=== PATIENT | female | born 1945 | race Caucasian/White ===

== ENCOUNTER → 2024-01-28 10:14 | Outpatient (REF) | payer MEDICARE, BC, SELFPAY | LOC: RAD 10:14 | PROVIDERS: ATTENDING PHYSICIAN Internal Medicine Critical Care Medicine; FAMILY PHYSICIAN Internal Medicine | DX: Z87.891 Personal history of nicotine dependence (principal) | CPT/HCPCS: 71271 ==

== ENCOUNTER → 2024-03-24 12:36 | Outpatient (REF) | payer MEDICARE, BC, SELFPAY | LOC: WDC 12:36 | PROVIDERS: ATTENDING PHYSICIAN Obstetrics & Gynecology Gynecology; FAMILY PHYSICIAN Internal Medicine | DX: Z85.3 Personal history of malignant neoplasm of breast (principal); Z12.31 Encounter for screening mammogram for malignant neoplasm of breast | CPT/HCPCS: 77063; 77067 ==

== ENCOUNTER → 2024-05-19 09:26 | Outpatient (REF) | payer MEDICARE, BC, SELFPAY | LOC: RAD 09:26 | PROVIDERS: ATTENDING PHYSICIAN Internal Medicine Critical Care Medicine; FAMILY PHYSICIAN Internal Medicine | DX: R91.1 Solitary pulmonary nodule (principal) | CPT/HCPCS: 71250 ==

== ENCOUNTER → 2024-11-05 11:31 | Outpatient (REF) | payer MEDICARE, BC, SELFPAY | LOC: RAD 11:31 | PROVIDERS: ATTENDING PHYSICIAN Surgery Vascular Surgery; FAMILY PHYSICIAN Internal Medicine | DX: I77.9 Disorder of arteries and arterioles, unspecified (principal); I65.22 Occlusion and stenosis of left carotid artery | CPT/HCPCS: 93880 ==

== ENCOUNTER → 2024-12-29 13:31 | Outpatient (REF) | payer MEDICARE, BC, SELFPAY | LOC: RCS 13:31 | PROVIDERS: ATTENDING PHYSICIAN Internal Medicine Cardiovascular Disease; FAMILY PHYSICIAN Internal Medicine | DX: I50.32 Chronic diastolic (congestive) heart failure (principal) | CPT/HCPCS: 93306 ==

== ENCOUNTER → 2025-01-28 08:03 | Outpatient (REF) | payer MEDICARE, BC, SELFPAY | LOC: HWRCS 08:03 | PROVIDERS: ATTENDING PHYSICIAN Internal Medicine Cardiovascular Disease; FAMILY PHYSICIAN Internal Medicine | DX: R06.09 Other forms of dyspnea (principal) | CPT/HCPCS: 78452; 93017; A9500; J2785 ==

== ENCOUNTER → 2025-04-17 13:59 | Outpatient (REF) | payer MEDICARE, BC, SELFPAY | LOC: RAD 13:59 | PROVIDERS: ATTENDING PHYSICIAN Student in an Organized Health Care Education/Training Program; FAMILY PHYSICIAN Internal Medicine | DX: M81.0 Age-related osteoporosis without current pathological fracture (principal); R29.890 Loss of height; Z51.81 Encounter for therapeutic drug level monitoring | CPT/HCPCS: 77080 ==

== ENCOUNTER → 2025-05-08 10:13 | Outpatient (REF) | payer MEDICARE, BC, SELFPAY | LOC: RAD 10:13 | PROVIDERS: ATTENDING PHYSICIAN Surgery Vascular Surgery; FAMILY PHYSICIAN Internal Medicine | DX: I65.23 Occlusion and stenosis of bilateral carotid arteries (principal) | CPT/HCPCS: 93880 ==

== ENCOUNTER → 2025-05-11 17:03 | Outpatient (REF) | payer MEDICARE, BC, SELFPAY | LOC: RAD 17:03 | PROVIDERS: ATTENDING PHYSICIAN Internal Medicine Critical Care Medicine; FAMILY PHYSICIAN Internal Medicine; OTHER PHYSICIAN Surgery Vascular Surgery | DX: R91.1 Solitary pulmonary nodule (principal); I65.23 Occlusion and stenosis of bilateral carotid arteries | CPT/HCPCS: 70496; 70498; 71250; Q9967 ==

== ENCOUNTER 2025-05-20 06:05 | Inpatient (IN) | payer MEDICARE, BC, SELFPAY ==
[2025-05-14 09:52] VITALS: BMI 21.9
[2025-05-14 10:21] LABS: Hematocrit 40.7 % (37.0-47.0); Hemoglobin 13.8 g/dL (12.0-16.0); Mean Corp Hgb Conc. 33.9 g/dL (33.0-37.0); Mean Corpuscular Volume 89.3 fL (81.0-99.0); Nucleated Red Blood Cells % 0 %; Platelet Count 186 10^3/uL (130-400); Red Cell Dist. Width 13.6 % (11.5-14.5)
[2025-05-14 10:26] LABS: APTT 34.8 Sec (23.4-35.0); INR 1.33; PT 16.8 Sec (11.4-14.6)
[2025-05-14 11:11] LABS: Blood Urea Nitrogen 22 mg/dl (7-17); Calcium 10.5 mg/dl (8.4-10.2); Carbon Dioxide 31 mmol/L (22-30); Chloride 107 mmol/L (98-107); Estimated Creatinine Clearance 48 ml/min; Glucose 104 mg/dl (70-99); Potassium 4.4 mmol/L (3.5-5.1); Sodium 143 mmol/L (135-145); eGFR > 60.00
[2025-05-20] VITALS (12 sets, daily range): BP systolic 100–139; BP diastolic 48–77; BMI 21.9
[2025-05-20] MEDS: NSS 500 IV (06:42)
[2025-05-20] MEDS: PERIDEX 0.12% ORAL RINSE 15 ML PO (06:42)
[2025-05-20] MEDS: BACTROBAN NASAL 1 GRAM NASAL (06:42)
--- NOTE | 2025-05-20 07:20 | W.SUR.PREOP ---
Pre-Operative Surgical Note
-
I have examined this patient prior to the performance of the scheduled procedure.
The patient's condition is unchanged from the time of the current History and
Physical and the patient is able to undergo the scheduled procedure.
[2025-05-20 08:10] LABS: ACT-LR - POC 276 Seconds (116-155)
[2025-05-20 08:48] LABS: ACT-LR - POC 242 Seconds (116-155)
--- NOTE | 2025-05-20 09:47 | W.SUR.POST ---
Surgical Immediate Post Op
Note
Pre Op Diagnosis: Right Carotid Stenosis
Post Op Diagnosis: Right Carotid Stenosis
Procedure Performed: Right carotid endarterectomy
Primary Surgeon: Grady Luo MD
Secondary Surgeons: Jacob Wren MD
Anesthesia: see anesthesia report
Estimated Blood Loss: 20 cc
Fluids: see anesthesia report
Drains/Shunts: None
Specimens/Cultures: Right carotid plaque
Doppler/Duplex/Angio (Y/N): N
Complications: No
Operative Findings: Right carotid stenosis
[2025-05-20 09:48] LABS: Glucose - Point of Care 163 mg/dl (70-99)
--- NOTE | 2025-05-20 09:49 | OR.RPT ---
Operative Report
Operative Report
Date of Operation: May 20, 2025
Pre Op Diagnosis: High-grade right carotid artery stenosis, symptomatic
Post Op Diagnosis: High-grade right carotid artery stenosis, symptomatic
Procedure: RIGHT carotid endarterectomy with patch angioplasty using bovine pericardium
Surgeon: Grady Luo III, MD
[employer] Supervisor: Jacob Wren MD PGY-6
Anesthesia: General
Complications: None
History and Indications for Procedure: 79-year-old female with symptomatic right carotid artery stenosis
Procedure in Detail: Lilia Carson was correctly identified and placed supine on the operating table. After adequate induction of anesthesia the right neck was positioned, prepped and draped in the usual sterile fashion. Preoperative antibiotics were
administered. A timeout procedure was performed with the nursing and anesthesia staff confirming the patients identity as well as the nature and laterality of the procedure.
The carotid bifurcation was marked with ultrasound at the beginning of the case. The incision was planned accordingly. An incision was made along the anterior border of the right sternocleidomastoid muscle. Electrocautery was used to divide the
subcutaneous tissue and platysma. The carotid sheath was entered with sharp dissection. The internal jugular vein was retracted laterally. The vagus nerve was identified and protected throughout the case. The common carotid artery was identified at
the base of this incision and carefully encircled with a vessel loop. The patient was systemically heparinized. The dissection was continued distally towards the carotid bifurcation. The facial vein was skeletonized, ligated and divided between ties
and clips. The proximal external carotid artery was encircled with a vessel loop. The distal internal carotid artery was encircled with a vessel loop at a soft spot on the artery beyond the plaque. The hypoglossal nerve was identified and protected.
The internal vessel loop was secured followed by the common and external. An arteriotomy was made on the distal common carotid artery with an 11-blade. This was extended proximally and distally with Bah scissors. The arteriotomy was extended
distally through the plaque to an area of normal appearing internal carotid artery. The distal vessel loop was replaced with a short tip hockey-stick type vascular clamp. An endarterectomy was performed with a [place] elevator in the standard
fashion. The proximal extent of the plaque was transected with scissors. The distal end of the plaque in the internal carotid artery was feathered. No distal intimal flap was identified. The plaque extending into the external carotid artery was
everted. Once the plaque was fully removed the endarterectomy plane was irrigated with heparinized saline and any loose fronds of tissue were removed. A pre-cut piece of bovine pericardium was sewn in place using a running 6-0 Prolene suture. Prior
to the completion of the patch the common carotid was allowed to forward bleed and the external was allowed to back bleed. The area under the patch was irrigated with heparinized saline to remove any potential thrombus or debris. The anastomosis was
completed.
The external vessel loop was released first, followed by the common and then the internal. There was an excellent pulse in the distal internal carotid artery. An excellent quality Doppler signal in the distal internal carotid artery was also
confirmed. The patch suture line was closely inspected for hemostasis and was achieved. Protamine was administered. Hemostasis was achieved in the wound bed. The wound was irrigated with saline solution.
The wound was then closed in layers. Sterile skin glue was applied. The patient awoke from anesthesia with no immediate neuro deficits and was taken to the PACU in stable condition.
Attestation: I was present and responsible for the entire procedure
Signed:
Grady Luo III, MD
Vascular Surgery
[facility]
[2025-05-20] MEDS: DILAUDID 0.5 MG IV ×2 (10:03→14:00)
[2025-05-20] MEDS: NEO-SYNEPHRINE 250 IV (10:08)
[2025-05-20 10:14] LABS: Hematocrit 33.3 % (37.0-47.0); Hemoglobin 11.2 g/dL (12.0-16.0); Mean Corp Hgb Conc. 33.6 g/dL (33.0-37.0); Mean Corpuscular Volume 90.2 fL (81.0-99.0); Platelet Count 150 10^3/uL (130-400); Red Cell Dist. Width 13.6 % (11.5-14.5)
[2025-05-20 10:54] LABS: Blood Urea Nitrogen 16 mg/dl (7-17); Calcium 8.8 mg/dl (8.4-10.2); Carbon Dioxide 25 mmol/L (22-30); Chloride 109 mmol/L (98-107); Estimated Creatinine Clearance 64 ml/min; Glucose 174 mg/dl (70-99); Potassium 4.2 mmol/L (3.5-5.1); Sodium 137 mmol/L (135-145); eGFR > 60.00
--- NOTE | 2025-05-20 11:11 | PTCARENOTE ---
1030 Notified Leonor CUETO, for concern regarding facial droop and tongue deviation, Leonor at bedside, examined PT, no new orders, Per CORK SORTER this is a deviation is from the maxillary nerve being manipulated
[2025-05-20] MEDS: NSS 1000 IV ×2 (11:30→21:07)
--- NOTE | 2025-05-20 11:30 | W.PN.UPDATE ---
Update Note
Progress Note Update
Notified via [place] text by PACU nurse that she was concerned for right sided facial droop, immediately reported to bedside. Patient was drowsy following anesthesia but easily arousable, no evidence of unilateral weakness, able to move bilateral
upper extremities and lower extremities equal and to command. Clear speech. I did not appreciate any facial droop on my exam. However, I did note scant right-sided tongue deviation, tongue crosses midline, with full motor function, suspect minor
hypoglossal nerve injury. Blood pressure and heart rate stable. Patient appeared in no distress resting on stretcher comfortably. Plan is to continue neurovascular checks every hour and patient will continue with to transfer to ICU level care
postoperatively per carotid endarterectomy protocol. Updated attending Dr. Grady Luo III.
--- NOTE | 2025-05-20 12:27 | PTCARENOTE ---
Rec'd patient from PACU around 1100. Patient drowsy. Pupils equal and reactive; +2mm. MAEX4; normal strength. Tongue deviation and facial droop present. Per previous RN, unchanged and assessed by vascular reimbursement manager in PACU. Right neck incision closed with
surgical glue. SB on tele. Rate in the 50's. Occasionally paced. Right radial nuris leveled and zeroed. Correlating with bp cuff. Titrating Nikko for SBP 100-165. Pulse ox 99% on 2L nc. Lung sounds cta. +BS. Patient c/o nausea. Antiemetic requested.
PO intake on hold until nausea resolved. Admission complete. See worklist for full assessment and care.
--- NOTE | 2025-05-20 12:49 | CON.INTV ---
Consultation
Consultation Request
Date/Time Consultation Requested: 05/20/2025-1:15 PM
Date/Time Consultation Performed: 05/20/2025-1:15 PM
Requesting Provider: vascular surgery
Performing Provider: Dr. Brice
Reason for Consultation: postoperative
Medical History
-
Chief Complaint: carotid stenosis
History of Present Illness:
79-year-old former smoking female with a history of hypertension, hyperlipidemia, nonischemic cardiomyopathy, chronic systolic heart failure, breast cancer, anxiety and depression who was noted to have significant carotid stenosis and underwent
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 The patient is seen postoperatively in the surgical intensive care unit. The patient is slightly groggy but complaining of significant nausea.
She does not complain of any shortness of breath, chest pain, abdominal pain, focal weakness or dysarthria
Past Medical History
Past Medical History: None ( nonischemic cardiomyopathy. Chronic systolic heart failure. Mitral regurgitation. PAF. COPD. chronic bronchitis. Pulmonary nodule. Chronic bronchiolitis. Former smoker. Breast cancer 1996. Hypertension.
Hyperlipidemia. Anxiety/Depression. Osteopenia. GERD.)
Past Surgical History: None ( Cholecystectomy. Hysteroscopy/polypectomy 2015. Breast lumpectomy/XRT/chemo 1996. Cardiac ablation 2017. PEA arrest/VDRF-EF 15% 2015.Cataract surgery 2022. Carotid endarterectomy 2021)
Social History
Tobacco: Former Smoker ( quit 2014)
Drug: None
Living: With Family
Occupational Exposures: no known asbestos exposure
Environmental Exposures: no known tuberculosis exposure
Family History
Family History: Reviewed & Not Pertinent ( mother-diabetes, hypertension, hyperlipidemia. Sister-bowel obstruction)
Allergies / Home Medications
Allergies
Allergy/AdvReac Type Severity Reaction Status Date / Time
codeine Allergy Nausea / Verified 05/14/25 10:52
Vomiting
Home Medications
�Medication �Instructions �Recorded �Confirmed �Last Taken �Type
apixaban 5 mg tablet (Eliquis) 5 mg PO BID Blood clot 07/18/18 05/20/25 05/18/25 21:00 History
Held on 08/30/22. prevention/tx
Instructions: Resume on
08/31/22. RESUME tomorrow
carvedilol 25 mg tablet (Coreg) 25 mg PO BID Cancer 07/18/18 05/20/25 05/19/25 09:00 History
dofetilide 250 mcg capsule 250 mcg PO BID Heart 07/18/18 05/20/25 05/19/25 21:00 History
disease/condition
furosemide 20 mg tablet 40 mg PO DAILY Fluid 07/18/18 05/20/25 05/19/25 09:00 History
retention/Swelling
paroxetine HCl 20 mg tablet (Paxil) 20 mg PO DAILY Mental 07/18/18 05/20/25 05/19/25 09:00 History
Health/Anxiety
spironolactone 25 mg tablet 25 mg PO DAILY Heart 07/18/18 05/20/25 05/19/25 09:00 History
disease/condition
valsartan 40 mg tablet 40 mg PO DAILY Blood pressure 07/18/18 05/20/25 05/19/25 09:00 History
atorvastatin 40 mg tablet 80 mg PO DAILY High cholesterol 05/03/22 05/20/25 05/19/25 09:00 History
magnesium oxide 400 mg PO DAILY Supplement 05/03/22 05/20/25 05/19/25 09:00 History
omeprazole 20 mg capsule,delayed 20 mg PO DAILY Gastrointestinal 05/03/22 05/20/25 05/19/25 09:00 History
release issue
cholecalciferol (vitamin D3) 50 75 mcg PO DAILY Supplement 05/13/25 05/20/25 05/19/25 21:00 History
mcg (2,000 unit) capsule (Vitamin
D3)
digoxin 125 mcg (0.125 mg) tablet 125 mcg PO DAILY AFib 05/13/25 05/20/25 05/19/25 09:00 History
ezetimibe 10 mg tablet (Zetia) 10 mg PO DAILY High Cholesterol 05/13/25 05/20/25 05/19/25 09:00 History
vit C 250 mg-vit E 90 mg-zinc 40 1 tab PO BID Supplement 05/13/25 05/20/25 05/19/25 09:00 History
mg-copper 1 [id number]
capsule (PreserVision AREDS-2)
Review of Systems
-
Unable to Obtain full review of systems at this time due to: Other ( per HPI)
Vitals / Labs / Diagnostic Testing
Vital Signs
Temp Pulse Resp BP Pulse Ox
97.5 F 59 10 127/58 99
05/20/25 11:14 05/20/25 12:15 05/20/25 12:15 05/20/25 12:00 05/20/25 12:15
Lab Data
05/20/25 10:00
05/20/25 10:00
Diagnostic Testing:
Physical Exam
-
Exam:
well-nourished and well-developed in no apparent distress
HEENT-atraumatic, normocephalic, right carotid endarterectomy incision well-healed no hematoma
Neck-supple, no JVD, no bruit
Heart-regular rate and rhythm-no murmurs, rubs or gallops
Chest with diminished breath sounds, prolonged expiratory time, no wheezes or crackles
Back without tenderness
Abdomen-soft, nontender, nondistended, no hepatosplenomegaly
Extremities-no cyanosis, clubbing, edema and good peripheral pulses
Integument-intact, no rashes, lesions or ecchymosis
Neurology-alert and oriented, nonfocal motor and sensory exam
Assessment
-
79-year-old former smoking female with a history of hypertension, hyperlipidemia, nonischemic cardiomyopathy, chronic systolic heart failure, breast cancer, anxiety and depression who was noted to have significant carotid stenosis and underwent
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
High-grade right carotid artery stenosis
Status post right carotid endarterectomy-Dr. Luo-05/20/2025
Mild leukocytosis
Mild normocytic anemia
Hyperglycemia
Conditions present prior to admission:
nonischemic cardiomyopathy.
Chronic systolic heart failure.
Mitral regurgitation.
PAF-on chronic Eliquis
PEA arrest/VDRF-EF 15%
COPD-maintained on DuoNebs/Pulmicort nebulizers
chronic bronchitis.
Pulmonary nodules-followed by
Chronic bronchiolitis.
Former smoker.
Breast cancer 1996.
Hypertension.
Hyperlipidemia.
Anxiety/Depression.
Osteopenia.
GERD.
Cholecystectomy. Hysteroscopy, D&C, polypectomy 2015. Breast lumpectomy right side/XRT/chemo 1996. Cardiac ablation 2017. CEA 2021. Cataract 2022.
Plan
Postoperative surgical intensive care unit monitoring
Supplemental oxygen as needed
Incentive spirometry
Aspiration precautions
Nebulizers-as an outpatient uses DuoNebs and Pulmicort nebulizers-follows with Dr. Manrique
Neuro and vascular checks per protocol
Monitor blood pressure/perfusion pressures and pulses closely
Vascular surgery following-correspondence and operative notes reviewed
DVT prophylaxis
Early nutrition
Early mobilization
The patient follows with Dr. Manrique And was last seen 01/22/2025 and has an appointment 07/14/2025 at 10:45 AM-will need follow-up of multiple pulmonary nodules
Critical care statement: A total of 55 minutes of critical care time was provided for this patient today. This includes management of unstable vital signs, evaluation of the patient at bedside, reviewing the patient's pertinent medical records
including radiographs, microbiology, laboratory evaluations, and discussion with primary team, consultants, pharmacy, nutrition, physical therapy, case management, charge nurse, critical care nursing, and respiratory therapy.
Diagnostic data:
Chest x-ray 08/24/2022-NAD
Chest x-ray 05/14/2025-COPD changes,
CT chest low-dose 01/03/2023-tiny bilateral tree-in-bud nodules measuring up to 4 mm overall slightly increased since 2020
CT chest low-dose 01/28/2024-numerous tiny less than 5 mm nodules are again demonstrated some been resolved, newest pleural-based right upper lobe 6.[address] chest 05/19/2024-again multiple areas of tree-in-bud nodules compatible with infectious or inflammatory bronchiolitis, unchanged 6 mm pleural-based nodule medial right upper lobe, mild centrilobular emphysema
CT chest 05/11/2025-emphysematous lung changes, numerous bilateral scattered pulmonary nodules, some have improved overall stable there has been slight progression in the development of small nodules and nodular opacifications, the majority of these
nodules are subcentimeter in size, however there is an index nodule measuring 1.2 cm along the medial margin of the superior segment right lower lobe
Echocardiogram 12/29/2024-EF 56%, moderate mitral regurgitation, PA systolic 50-55
Lexiscan nuclear stress test 01/28/01/28/2025-fixed inferoapical defect, no evidence for ischemia, EF 62%
Data Reviewed
-
PFT: Report reviewed by me
EKG: Report reviewed by me
Radiology: Image personally visualized and interpreted and Report reviewed by me
CT Scan: Image personally visualized and interpreted and Report reviewed by me
Medical Tests (Nuc Med, Echo etc): Report reviewed by me
Labs: Labs reviewed by me
Old Records: Reviewed
Critical Care Time (in minutes): 55
[2025-05-20] MEDS: REGLAN 10 MG IV (12:55)
--- NOTE | 2025-05-20 13:03 | PTCARENOTE ---
1x dose of Reglan administered for nausea. Nikko titrated off. No other changes.
[2025-05-20] MEDS: LANOXIN 125 MCG PO (14:13)
--- NOTE | 2025-05-20 16:12 | PTCARENOTE ---
No major changes in assessment. Patient alert and oriented. Pupils equal and reactive; +2mm. Smile symmetrical. Tongue deviation remains; unchanged. MAEx4; normal strength. SB on tele; rate in the 50's. Patient required Nikko to be reinitiated around
1400 due to SBP <100. Nikko off again at 1610. Weaned to RA. Pulse ox 92-93%. Nausea resolved and tolerating sipping on clears. Voiding via bedpan.
[2025-05-20] MEDS: ROXICODONE 5 MG PO (16:23)
--- NOTE | 2025-05-20 16:31 | PTCARENOTE ---
Pulse ox down to 88% while sleeping. 2L nc reapplied.
--- NOTE | 2025-05-20 19:15 | PTCARENOTE ---
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
[2025-05-20] MEDS: HEPARIN 5000 UNITS SC (21:07)
[2025-05-20] MEDS: TIKOSYN 250 MCG PO (21:08)
[2025-05-21] VITALS (10 sets, daily range): BP systolic 90–116; BP diastolic 39–92; BMI 23.5
--- NOTE | 2025-05-21 00:41 | PTCARENOTE ---
no changes from prior assessment, pt denies pain, neuro checks WNL, call diaz in reach
[2025-05-21 03:25] LABS: Hematocrit 35.0 % (37.0-47.0); Hemoglobin 11.6 g/dL (12.0-16.0); Mean Corp Hgb Conc. 33.1 g/dL (33.0-37.0); Mean Corpuscular Volume 91.6 fL (81.0-99.0); Platelet Count 165 10^3/uL (130-400); Red Cell Dist. Width 13.7 % (11.5-14.5)
--- NOTE | 2025-05-21 03:35 | PTCARENOTE ---
pt denies pain and SOb at this time,no new changes, call diaz in reach
[2025-05-21 03:43] LABS: INR 1.19; PT 15.6 Sec (11.4-14.6)
[2025-05-21 03:44] LABS: APTT 28.1 Sec (23.4-35.0)
[2025-05-21 04:16] LABS: Blood Urea Nitrogen 19 mg/dl (7-17); Calcium 8.9 mg/dl (8.4-10.2); Carbon Dioxide 24 mmol/L (22-30); Chloride 111 mmol/L (98-107); Estimated Creatinine Clearance 64 ml/min; Glucose 117 mg/dl (70-99); Potassium 4.8 mmol/L (3.5-5.1); Sodium 139 mmol/L (135-145); eGFR > 60.00
[2025-05-21] MEDS: ROXICODONE 5 MG PO (05:24)
--- NOTE | 2025-05-21 07:41 | W.PN.VS ---
Addendum entered and electronically signed by Grady Luo III, MD 05/21/25 11:33:
This patient was seen and examined in collaboration with ROM Lugo. I agree with the history and physical exam as well as the assessment and plan. I have the following additions:
Lilia looks great this morning
Agree with plan
Possible discharge later today
Signed:
Grady Luo III, MD
Vascular Surgery
[facility]
Addendum entered and electronically signed by ROM Lugo 05/21/25 07:47:
Holding this morning's doses of Coreg, Aldactone, and valsartan to wean off nikko.
Original Note:
Today's Communication / Plan
-
Seen and assessed with Dr. Luo
Assessment/Plan
-
Postop day 1 right CEA:
Plan:
DC A-line
DC IV fluids
Out of bed/ambulate
P.o. meds
Regular diet
Likely DC later today
Subjective Data
-
Date of Service: May 21, 2025
Patient seen at bedside this a.m. with Dr. Luo. Patient offers no complaints this time. No events overnight.
Objective Data
-
Vital Signs
Temp Pulse Resp BP Pulse Ox
97.7 F 63 16 116/54 98
05/21/25 03:05 05/21/25 07:15 05/21/25 07:15 05/21/25 04:00 05/21/25 07:15
Intake and Output
05/20/25 05/21/25 05/22/25
06:59 06:59 06:59
Intake Total 2713 / 2793 80 / 80
Output Total 0 / 0
Balance 2713 / 2793 80 / 80
Intake:
Oral fluids 1020 / 1020
IV fluids (Total) 169 / 177 80 / 80
Nikko 93 / 93 0 / 0
Nss 1,000 ml @ 80 mls/hr IV . 1600 / 1680 80 / 80
[id number] [facility] Rx#:[id number]
Output:
Urine, Voided 0 / 0
Other:
Number of approximated MODERATE 1
amounts of urine
Number of approximated LARGE 1
amounts of urine
Lab Results
05/21/25 03:17
05/21/25 03:17
Calcium 8.9 mg/dl (8.4-10.2) 05/21/25 03:17
Physical Exam
-
AAO x 3
No tachypnea on room air
No tachycardia
Abdomen soft
Neck site clean, dry, intact, soft, flat
Tongue is minimally deviated to the right
Moves to command
Face symmetrical
--- NOTE | 2025-05-21 07:43 | W.PN.INTV ---
Today's Communication / Plan
Recommendations
Hemodynamically and neurovascularly intact
Discontinue arterial line
Increase activity
Likely transferred out of ICU or discharged-hvac/r instructor will sign off-call pulmonary if respiratory issues arise
Outpatient follow-up with pulmonary
Assessment
-
79-year-old former smoking female with a history of hypertension, hyperlipidemia, nonischemic cardiomyopathy, chronic systolic heart failure, breast cancer, anxiety and depression who was noted to have significant carotid stenosis and underwent
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
High-grade right carotid artery stenosis
Status post right carotid endarterectomy-Dr. Luo-05/20/2025
Mild leukocytosis
Mild normocytic anemia
Hyperglycemia
Conditions present prior to admission:
nonischemic cardiomyopathy.
Chronic systolic heart failure.
Mitral regurgitation.
PAF-on chronic Eliquis
PEA arrest/VDRF-EF 15%
COPD-maintained on DuoNebs/Pulmicort nebulizers-Reportedly not taking
chronic bronchitis.
Pulmonary nodules-followed by
Chronic bronchiolitis.
Former smoker.
Breast cancer 1996.
Hypertension.
Hyperlipidemia.
Anxiety/Depression.
Osteopenia.
GERD.
Cholecystectomy. Hysteroscopy, D&C, polypectomy 2015. Breast lumpectomy right side/XRT/chemo 1996. Cardiac ablation 2017. CEA 2021. Cataract 2022.
Plan
Hemodynamically and neurovascularly intact
Wean supplemental oxygen
Incentive spirometry encourage
Aspiration precautions
Monitor hemoglobin
Transfuse if needed
Monitor blood sugars
Insulin supplementation if needed
Neuro and vascular checks per protocol also continue
Vascular surgery closely
DVT prophylaxis recommended
Nutrition
Increase activity/physical therapy
Patient can be transferred out of ICU-call pulmonary if respiratory issues arise
The patient follows with Dr. Manrique And was last seen 01/22/2025 and has an appointment 07/14/2025 at 10:45 AM-will need follow-up of multiple pulmonary nodules
Reviewed the patient's pertinent medical records including radiographs, microbiology, laboratory evaluations, and discussion with primary team, consultants, pharmacy, nutrition, physical therapy, case management, charge nurse, critical care
nursing, and respiratory therapy.
Diagnostic data:
Chest x-ray 08/24/2022-NAD
Chest x-ray 05/14/2025-COPD changes,
CT chest low-dose 01/03/2023-tiny bilateral tree-in-bud nodules measuring up to 4 mm overall slightly increased since 2020
CT chest low-dose 01/28/2024-numerous tiny less than 5 mm nodules are again demonstrated some been resolved, newest pleural-based right upper lobe 6.[address] chest 05/19/2024-again multiple areas of tree-in-bud nodules compatible with infectious or inflammatory bronchiolitis, unchanged 6 mm pleural-based nodule medial right upper lobe, mild centrilobular emphysema
CT chest 05/11/2025-emphysematous lung changes, numerous bilateral scattered pulmonary nodules, some have improved overall stable there has been slight progression in the development of small nodules and nodular opacifications, the majority of these
nodules are subcentimeter in size, however there is an index nodule measuring 1.2 cm along the medial margin of the superior segment right lower lobe
Echocardiogram 12/29/2024-EF 56%, moderate mitral regurgitation, PA systolic 50-55
Lexiscan nuclear stress test 01/28/01/28/2025-fixed inferoapical defect, no evidence for ischemia, EF 62%
Subjective Dataa
Subjective Data
Date of Service:
Date of Service: May 21, 2025
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
Subjective:
feels much improved, no more nausea, no dysarthria, weakness, no chest pain or shortness of breath or abdominal pain
Review of Systems
General: Other ( Per HPI)
Objective Data
Data Reviewed
Vital Signs / I&O / Oxygen:
Vital Signs
Temp Pulse Resp BP Pulse Ox
97.7 F 63 16 116/54 98
05/21/25 03:05 05/21/25 07:15 05/21/25 07:15 05/21/25 04:00 05/21/25 07:15
Intake and Output
05/20/25 05/21/25 05/22/25
06:59 06:59 06:59
Intake Total 2713 / 2793 80 / 80
Output Total 0 / 0
Balance 2713 / 2793 80 / 80
SaO2 98
Nasal Cannula flow liters per 2
minute
Physical Exam
General: Respiratory Distress (n) and Comfortable
HEENT: Normocephalic, Anicteric and Moist Mucous Membranes
Cardiovascular: Regular Rhythm
Respiratory: Wheeze ( diminished breath sounds but no active wheezing), Crackles (n), Rhonchi (n), Non-Labored Respirations, Accessory Resp Muscle Use (n) and Stridor (n)
GI: Soft, Non Distended and Non Tender
Neurology: Awake, Alert and No Motor Deficits
Skin: Warm, Good Color, Cyanosis (n), Jaundice (n) and Rash
Labs/Micro/Reports
Lab Data
05/21/25 03:17
05/21/25 03:17
Laboratory Results
05/21/25
03:17
PT 15.6 H
INR 1.19
APTT 28.1
[2025-05-21] MEDS: MAG-TAB SR 84 MG PO (07:58)
[2025-05-21] MEDS: ZETIA 10 MG PO (07:58)
[2025-05-21] MEDS: PROTONIX 40 MG PO (07:58)
[2025-05-21] MEDS: TIKOSYN 250 MCG PO (07:59)
[2025-05-21] MEDS: VITAMIN D3 (cholecalciferol) 75 MCG PO (07:59)
[2025-05-21] MEDS: LIPITOR 80 MG PO (07:59)
[2025-05-21] MEDS: LANOXIN 125 MCG PO (07:59)
[2025-05-21] MEDS: PAXIL 20 MG PO (08:00)
[2025-05-21] MEDS: HEPARIN 5000 UNITS SC (08:00)
[2025-05-21] MEDS: LASIX 40 MG PO (08:00)
--- NOTE | 2025-05-21 09:00 | PTCARENOTE ---
Rec'd care of patient at 0700. Patient alert and oriented. Pupils +2mm, equal and reactive. MAEx4. Smile symmetrical. Tongue remains deviated. Right neck incision intact. NSR with pacs and pvcs on tele. No edema. Palpable pulses. BP soft. Discussed
with vascular purchasing engineer. In order to keep Nikko off, Coreg, Aldactone and [place] held. [place] removed. Lung sounds cta on RA. Weaned to RA. +BS. Appetite good. IVFs capped. Voiding in bathroom. Patient oob to chair at 0825. Ambulating around room without
difficulty.
--- NOTE | 2025-05-21 09:36 | CM ---
Initial assessment completed with patient who lives with her in a 2 story plus basement home with B/B on 2nd and 1/2 bath on 1st, no steps to enter through the garage and 3 steps in front. 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
drives. Does have a pacemaker and a SPC that she uses on occasion when experiencing back pain. No in-home services. No service. Does have a HC-POA. PCP is Dr. Grady Ny and Pharmacy is [facility] on [facility] in [place]. Discharge POC: Home
with no needs.
[2025-05-21] MEDS: ALDACTONE 25 MG PO (10:51)
--- NOTE | 2025-05-21 12:45 | PTCARENOTE ---
No changes in assessment. Patient resting comfortably in chair. Neuro checks unchanged. 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 If bp able to tolerate, possible discharge home later in day.
[2025-05-21] MEDS: DIOVAN 40 MG PO (13:10)
--- NOTE | 2025-05-21 14:03 | W.DS.TRANS ---
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
-
Discharge Instructions:
Sleep Apnea Risk Low
Discharge Diagnosis/Procedures Right carotid endarterectomy
Diet As tolerated
Activity No strenuous activity
Driving Restrictions Not until seen by your Dr
Bathing Restrictions OK to Shower
Instructions:
Stand-Alone Forms: Vascular Surg Discharge Instr
Changes to Home Medications: Yes
Discharge Medications:
DC Medications w/original date entered in [facility]
apixaban 5 mg tablet (Eliquis) 5 mg PO BID Blood clot prevention/tx 07/18/18
Held on 05/21/25. Instructions: Resume on 05/23/25.
carvedilol 25 mg tablet (Coreg) 25 mg PO BID Cancer 07/18/18
Held on 05/21/25. Instructions: Resume on 05/22/25. We gave you a late dose of this medication today, please restart your usual dosing in AM
dofetilide 250 mcg capsule 250 mcg PO BID Heart disease/condition 07/18/18
furosemide 20 mg tablet 40 mg PO DAILY Fluid retention/Swelling 07/18/18
paroxetine HCl 20 mg tablet (Paxil) 20 mg PO DAILY Mental Health/Anxiety 07/18/18
spironolactone 25 mg tablet 25 mg PO DAILY Heart disease/condition 07/18/18
valsartan 40 mg tablet 40 mg PO DAILY Blood pressure 07/18/18
atorvastatin 40 mg tablet 80 mg PO DAILY High cholesterol 05/03/22
magnesium oxide 400 mg PO DAILY Supplement 05/03/22
omeprazole 20 mg capsule,delayed release 20 mg PO DAILY Gastrointestinal issue 05/03/22
cholecalciferol (vitamin D3) 50 mcg (2,000 unit) capsule (Vitamin D3) 75 mcg PO DAILY Supplement 05/13/25
digoxin 125 mcg (0.125 mg) tablet 125 mcg PO DAILY AFib 05/13/25
ezetimibe 10 mg tablet (Zetia) 10 mg PO DAILY High Cholesterol 05/13/25
vit C 250 mg-vit E 90 mg-zinc 40 mg-copper 1 kw-[id number] capsule (PreserVision AREDS-2) 1 tab PO BID Supplement 05/13/25
aspirin 81 mg chewable tablet 81 mg PO DAILY #100 tabs 05/21/25
Home Medication Changes
Added aspirin 81 mg daily
Pending Results: No
[2025-05-21] MEDS: COREG 25 MG PO (14:04)
--- NOTE | 2025-05-21 16:20 | CM ---
Addendum entered by Bill Razo 05/21/25 16:21:
Initial IMM within required 48 hours.
Original Note:
Patient has been medically cleared for discharge to home with no additional skilled services. Patient has arranged for transport home.
--- NOTE | 2025-05-21 17:03 | PTCARENOTE ---
Discharge order placed. Vitals stable. Discharge paperwork reviewed with patient and patient's . Clarification provided on when to restart Eliquis, new addition of ASA to medication regimen and not to take tonight's dose of Coreg. Patient
verbalizing understanding. In order to assist with readability, next doses highlighted. IV access and tele monitor removed. Patient transported via wheelchair to car with belongings.
== END 2025-05-21 17:00 | disposition home or self-care (01) | DRG 38 ==
LOC: ICU 06:05
PROVIDERS: Nurse Practitioner; ADMITTING PHYSICIAN Surgery Vascular Surgery; CONSULT PHYSICIAN Internal Medicine Critical Care Medicine; PRIMARYCARE PHYSICIAN Internal Medicine
PROC: 03UH0KZ Supplement Right Common Carotid Artery with Nonautologous Tissue Substitute, Open Approach (ICD-10-PCS; 2025-05-20)
PROC: 03CH0ZZ Extirpation of Matter from Right Common Carotid Artery, Open Approach (ICD-10-PCS; 2025-05-20)
DX: I65.21 Occlusion and stenosis of right carotid artery (principal); I42.8 Other cardiomyopathies; I50.22 Chronic systolic (congestive) heart failure; Z87.891 Personal history of nicotine dependence; I11.0 Hypertensive heart disease with heart failure; I34.0 Nonrheumatic mitral (valve) insufficiency; I48.0 Paroxysmal atrial fibrillation; Z79.01 Long term (current) use of anticoagulants; J44.89 Other specified chronic obstructive pulmonary disease
CPT/HCPCS: 35301; 36415; 71046; 80048; 82962; 85025; 85027; 85610; 85730; 86850; 86900; 86901; 88304; 88311; 93005; 95938; 95941; 95955

== ENCOUNTER → 2025-06-01 10:34 | Outpatient (REF) | payer MEDICARE, BC, SELFPAY | LOC: RCS 10:34 | PROVIDERS: ATTENDING PHYSICIAN Internal Medicine Cardiovascular Disease; FAMILY PHYSICIAN Internal Medicine | DX: R06.09 Other forms of dyspnea (principal); I50.32 Chronic diastolic (congestive) heart failure | CPT/HCPCS: 93306 ==

== ENCOUNTER → 2025-06-15 09:25 | Outpatient (REF) | payer MEDICARE, BC, SELFPAY | LOC: RAD 09:25 | PROVIDERS: ATTENDING PHYSICIAN Registered Nurse; FAMILY PHYSICIAN Internal Medicine | DX: I65.23 Occlusion and stenosis of bilateral carotid arteries (principal) | CPT/HCPCS: 93880 ==

== ENCOUNTER → 2025-07-13 13:16 | Outpatient (REF) | payer MEDICARE, BC, SELFPAY | LOC: RAD 13:16 | PROVIDERS: ATTENDING PHYSICIAN Registered Nurse; FAMILY PHYSICIAN Internal Medicine | DX: I65.23 Occlusion and stenosis of bilateral carotid arteries (principal) | CPT/HCPCS: 93880 ==